=== PATIENT | female | born 1950 | race Caucasian/White ===

== ENCOUNTER 2016-10-24 09:13 | Outpatient (RCR) | payer MEDICARE ==
--- NOTE | 2016-11-16 08:59 | RADONC ---
RADIATION ONCOLOGY PROGRESS NOTE: DATE: 11/13/2016 Ms. Child is presently a dose of 1260 cGy to her right breast and is tolerating treatments quite well at this point with no complaints related to her radiation therapy. She has no breast or bone pain. REVIEW OF SYSTEMS: The patient's review of systems is noncontributory. Denies nausea, vomiting, fevers, chills, night sweats, diplopia, headaches, anxiety or depression, anorexia, weight loss, visual disturbances, chest pain, urinary or bowel difficulties, bone pain, or neurological problems. PHYSICAL EXAMINATION: The patient's skin is in good condition with no evidence of moist or dry desquamation. The remainder of her physical exam remains unchanged. Ms. Child is tolerating treatments quite well and radiation will continue as scheduled.
== END 2016-11-14 ==
LOC: M ONCR 09:13
PROVIDERS: ATTEND Radiology Radiation Oncology
DX: C50.811 Malignant neoplasm of overlapping sites of right female breast (principal)

== ENCOUNTER → 2016-10-25 | Outpatient (CLI) | payer MEDICARE ==
[2016-10-25 16:03] LABS: MEAN CORPUSCULAR HEMOGLOBIN 29.7 pg (27.0-33.0); MEAN CORPUSCULAR HGB CONC 32.8 g/dl (32.0-36.5); MEAN CORPUSCULAR VOLUME 90.6 fl (80.0-96.0); RED CELL DISTRIBUTION WIDTH 13.2 % (11.5-14.5); WHITE BLOOD COUNT 10.2 K/mm3 (4.0-10.0)
== END ==
LOC: M RAD 13:45
PROVIDERS: ATTEND Radiology Radiation Oncology
DX: C50.919 Malignant neoplasm of unspecified site of unspecified female breast (principal)

== ENCOUNTER 2016-11-15 10:33 | Outpatient (RCR) | payer MEDICARE ==
--- NOTE | 2016-11-21 09:33 | RADONC ---
RADIATION ONCOLOGY PROGRESS NOTE DATE: 11/20/2016 CHART NUMBER: [id number] Ms. Child is presently at a dose of 1800 cGy to her right breast and is tolerating treatments quite well at this point with no complaints related to her radiation therapy. She is having no significant breast or bone pain. The patient's review of systems is noncontributory. She denies nausea, vomiting, fevers, chills, night sweats, diplopia, headaches, anxiety or depression, anorexia, weight loss, visual disturbances, chest pain, urinary or bowel difficulties, bone pain, or neurological problems. PHYSICAL EXAMINATION: The patient's skin is in good condition with no evidence of moist or dry desquamation. The remainder of her physical exam remains unchanged. Ms. Child is tolerating her treatments quite well, and radiation will continue as scheduled.
--- NOTE | 2016-11-28 10:46 | RADONC ---
RADIATION ONCOLOGY PROGRESS NOTE DATE: 11/27/2016 CHART NUMBER: [id number] Ms. Child is presently at a dose of 2700 cGy to her right breast and is tolerating treatments quite well at this point with no significant difficulties related to her radiation therapy other than some skin discomfort. The patient's review of systems is noncontributory. She denies nausea, vomiting, fevers, chills, night sweats, diplopia, headaches, anxiety or depression, anorexia, weight loss, visual disturbances, chest pain, urinary or bowel difficulties, bone pain, or neurological problems. PHYSICAL EXAMINATION: The patient's skin shows some erythema present but overall is in good condition with no evidence of moist or dry desquamation. The remainder of physical exam remains unchanged. Ms. Child is tolerating treatments quite well and radiation will continue as scheduled.
[2016-12-04] MEDS ORDERED: SILV-4 TOP (10:56)
--- NOTE | 2016-12-06 09:47 | RADONC ---
RADIATION ONCOLOGY PROGRESS NOTE DATE: 12/04/2016 CHART NUMBER: [id number] Ms. Child is presently at a dose of 3600 cGy to her right breast and is tolerating treatments quite well at this point with no significant difficulties related to her radiation therapy, other than some tenderness of the skin. REVIEW OF SYSTEMS: The patient's review of systems is positive for skin tenderness, but is otherwise noncontributory. She denies nausea, vomiting, fevers, chills, night sweats, diplopia, headaches, anxiety or depression, anorexia, weight loss, visual disturbances, chest pain, urinary or bowel difficulties, bone pain, or neurological problems. PHYSICAL EXAMINATION: The patient's skin is in good condition with no evidence of moist or dry desquamation. There is erythema present. The remainder of her physical exam remains unchanged. ASSESSMENT: The patient is tolerating treatments fairly well. I have given her a prescription for Silvadene to be used topically for her erythematous skin. Radiation will continue as scheduled.
--- NOTE | 2016-12-11 11:42 | RADONC ---
RADIATION ONCOLOGY SIMULATION NOTE DATE: 12/11/2016 CHART NUMBER: [id number] Ms. Child was taken to the linear accelerator today for clinical setup of her right breast electron beam boost field. Setup was accomplished without difficulty or discomfort. Radiation treatment planning is underway and radiation treatments will begin subsequently. An immobilization device will be used throughout the course of treatment and was setup without difficulty or discomfort. I was physically present throughout the course of electron setup simulation. Edited: 12/11/2016 1145 [facility]
--- NOTE | 2016-12-11 11:46 | RADONC ---
RADIATION ONCOLOGY PROGRESS NOTE DATE: 12/11/2016 CHART NUMBER: [id number] PROGRESS NOTE: Ms. Child is presently at a dose of 4500 cGy to her right breast and is tolerating treatments quite well at this point with no significant difficulties related to radiation therapy other than some tenderness of the skin. REVIEW OF SYSTEMS: The patient's review of systems is noncontributory except for send a dose of the skin. The patient's review of systems is noncontributory. Denies nausea, vomiting, fevers, chills, night sweats, diplopia, headaches, anxiety or depression, anorexia, weight loss, visual disturbances, chest pain, urinary or bowel difficulties, bone pain, or neurological problems. PHYSICAL EXAMINATION: The patient's skin shows some erythema and tanning present but overall is in good condition with no evidence of moist or dry desquamation. The remainder of her physical exam remains unchanged. Ms. Child is tolerating treatments quite well and radiation will continue as scheduled.
== END 2016-12-12 ==
LOC: M ONCR 10:33
PROVIDERS: ATTEND Radiology Radiation Oncology
DX: C50.811 Malignant neoplasm of overlapping sites of right female breast (principal)

== ENCOUNTER → 2016-12-04 | Outpatient (CLI) | payer MEDICARE ==
[~2016-12-04] MED LIST: SILV-4 TOP
--- NOTE | 2016-12-05 09:30 | DEXA ---
AP SPINE L1 - L4 0.932 -2.1 -0.9 LT FEMUR TOTAL 0.740 -2.1 -1.1 RT FEMUR TOTAL 0.721 -2.3 -1.3 TOTAL BODY TOTAL OTHER DUAL FEMUR FRAX* ASSESSMENT Risk factors: Tobacco use (E-cigs). History of adult fracture. 10 year probability of fracture Major osteoporotic fracture 27.2 % Hip fracture 11.2 % COMMENTS: There is low bone density of the spine. There is osteoporosis of the left hip based on femoral neck T score -2.8 left. There is osteoporosis of the right hip based on femoral neck T score -2.7 right. FOLLOW-UP: Recommendation for the next bone density exam: 1 year. NOREEN
== END ==
LOC: M WHC 11:15
PROVIDERS: ATTEND Internal Medicine Medical Oncology
DX: C50.919 Malignant neoplasm of unspecified site of unspecified female breast (principal); Z79.899 Other long term (current) drug therapy; Z78.0 Asymptomatic menopausal state

== ENCOUNTER 2016-12-13 14:37 | Outpatient (RCR) | payer MEDICARE ==
--- NOTE | 2016-12-18 13:25 | RADONC ---
RADIATION ONCOLOGY PROGRESS NOTE DATE: 12/18/2016 CHART NUMBER: [id number]. PROGRESS NOTE: Ms. Child is presently at a dose of 5260 cGy to her right breast primary site boost and is tolerating treatments quite well at this point with no complaints at this time related to her radiation. She does have some back pain from laying on the hard table. REVIEW OF SYSTEMS: The patient's review of systems is positive for some back and arm discomfort but is otherwise noncontributory. The patient's review of systems is noncontributory. Denies nausea, vomiting, fevers, chills, night sweats, diplopia, headaches, anxiety or depression, anorexia, weight loss, visual disturbances, chest pain, urinary or bowel difficulties, bone pain, or neurological problems. PHYSICAL EXAMINATION: The patient's skin is in good condition with no evidence of moist or dry desquamation. The remainder of her physical exam remains unchanged. Ms. Child is tolerating her treatments quite well and radiation will continue as scheduled.
--- NOTE | 2016-12-22 14:32 | RADONC ---
RADIATION ONCOLOGY TREATMENT SUMMARY DATE: 12/22/2016 CHART NUMBER: [id number]. DIAGNOSIS: Right breast cancer. STAGE: IA, [id number]. ECOG PERFORMANCE STATUS: 0 TREATMENT SUMMARY: Ms. 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 We treated the patient to the right breast for a total dose of 4860 cGy delivered in 27 fractions of 180 cGy each over 41 elapsed days from 11/02/2016 through 12/13/2016. The patient's right breast was treated on the linear accelerator utilizing an 18X and 6X photon beam combination with 3D conformal therapy and medial and lateral tangential mahajan. Following completion of 4860 cGy to the entire right breast, the primary site was boosted for an additional 1200 cGy delivered in 6 fractions of 200 cGy each from 12/14/2016 through 12/22/2016. The primary site boost was treated on a linear accelerator utilizing a 9 MeV electron beam prescribed to the 90% isodose line via en face technique. This brought the primary site to a total dose of 6060 cGy delivered in 33 fractions over 50 elapsed days from 11/02/2016 through 12/22/2016. Ms. Child is tolerated her treatments quite well with no difficulties related to her radiation therapy. She was able to complete therapy as prescribed without interruption. I have scheduled the patient to see me again in 1 month for further followup. She will also continue to be followed by her other physicians as well. cc: Jeny Schmidt MD *Nicho Ruiz MD
== END 2017-01-12 ==
LOC: M ONCR 14:37
PROVIDERS: ATTEND Radiology Radiation Oncology
DX: C50.811 Malignant neoplasm of overlapping sites of right female breast (principal)

== ENCOUNTER → 2017-01-24 | Outpatient (CLI) | payer MEDICARE ==
--- NOTE | 2017-01-24 12:14 | RADONC ---
RADIATION ONCOLOGY FOLLOWUP NOTE DATE: 01/24/2017 CHART NUMBER: [id number] DIAGNOSIS: Right breast cancer. STAGE: IA, [id number]. ECOG PERFORMANCE STATUS: 0 FOLLOWUP NOTE: Ms. Child is a very pleasant 66-year-old white female with the diagnosis of a stage IA, T1N0M0, well-differentiated infiltrating ductal carcinoma of the right breast who is presenting to us today for routine followup visit 1 month post completion of external beam radiation therapy. The patient presents today reporting that she is doing quite well with no complaints at this time related to her radiation therapy or disease. She has no breast or bone pain. The patient's review of systems is noncontributory. She denies nausea, vomiting, fevers, chills, night sweats, diplopia, headaches, anxiety or depression, anorexia, weight loss, visual disturbances, chest pain, urinary or bowel difficulties, bone pain, or neurological problems. PHYSICAL EXAMINATION: The patient is a well-developed, well-nourished female in no acute distress. HEENT exam is normocephalic, atraumatic. Extraocular movements are intact. There is no palpable cervical, supraclavicular, infraclavicular, axillary, or inguinal lymphadenopathy present. Lungs are clear to auscultation and percussion. Heart has a regular rate and rhythm. Abdomen is benign with no hepatosplenomegaly, masses, or tenderness. Breast examination reveals no masses or discharge bilaterally. Skeletal examination reveals no tenderness to pressure or percussion of the bony skeleton. Extremities reveal no clubbing, cyanosis, or edema. Neurologic exam is grossly intact, as is the remainder of the physical examination. ASSESSMENT: The patient is clinically PATRICIA at this time and will be seen by us again in 6 months for further followup. She will also continue to be followed by her other physicians as well. cc: Maria Isabel Aguero MD *Nicho Ruiz MD
== END ==
LOC: M ONCR 11:13
PROVIDERS: ATTEND Radiology Radiation Oncology
DX: Z08 Encounter for follow-up examination after completed treatment for malignant neoplasm (principal); Z85.3 Personal history of malignant neoplasm of breast

== ENCOUNTER → 2017-07-06 | Outpatient (REF) | payer MEDICARE | LOC: M SFHCWAGY 16:55 | PROVIDERS: ATTEND Nurse Practitioner Family | DX: R30.0 Dysuria (principal); N94.9 Unspecified condition associated with female genital organs and menstrual cycle | CPT/HCPCS: 81001; 81002; 87070; 87086; 87210; G0463 ==

== ENCOUNTER → 2017-07-10 | Outpatient (CLI) | payer MEDICARE ==
--- NOTE | 2017-07-10 16:56 | REP ---
REASON FOR EXAM: History of pelvic pain. COMPARISON: 08/05/2004 which is the only prior. Transvesical and transvaginal imaging was obtained. The prior examination showed a 1.2 cm sized fibroid in the uterine body to the right of the midline. The uterus measures 5.5 x 2.3 x 3.4 cm. The uterine parenchymal echo pattern is heterogenous. Once again, there is a hypoechoic structure seen in the uterine body to the right of the midline measuring approximately 1 cm and essentially unchanged from the prior exam. The endometrial echo complex is smooth and unremarkable appearing measuring 3 mm in thickness. The right ovary was not visualized transvesically or transvaginally. Left ovary measures 2.3 x 1.5 x 1.5 cm. Within the substance of the left ovary there is a 1.8 cm sized anechoic structure which exhibits posterior wall enhancement and increased through transmission showing no evidence of septations or papillary projections. Urinary bladder measures 13 x 8 x 10 cm. IMPRESSION:1. Urine myomatous changes, as described above, essentially unchanged from the prior exam. 2. Simple left ovarian cyst. Consider 2 month followup to ensure resolution if clinically relevant.
== END ==
LOC: M WHC 12:43
PROVIDERS: ATTEND Nurse Practitioner Family
DX: R10.2 Pelvic and perineal pain (principal)

== ENCOUNTER → 2017-07-25 | Outpatient (CLI) | payer MEDICARE ==
--- NOTE | 2017-07-26 08:57 | RADONC ---
RADIATION ONCOLOGY FOLLOWUP NOTE DATE: 07/25/2017 CHART NUMBER: [id number] DIAGNOSIS: Right breast cancer. STAGE: [id number]. ECOG PERFORMANCE STATUS: 0 FOLLOWUP NOTE: Ms. Ta is a very pleasant 67-year-old white female with the diagnosis of a stage IA, T1N0M0 well-differentiated infiltrating ductal carcinoma of the right breast who is presenting to us today for routine followup visit 7 months post completion of external beam radiation therapy. The patient presents today reporting that she is doing quite well with no complaints at this time related to her radiation therapy or disease. She has no significant breast or bone pain. The patient's review of systems is noncontributory. She denies nausea, vomiting, fevers, chills, night sweats, diplopia, headaches, anxiety or depression, anorexia, weight loss, visual disturbances, chest pain, urinary or bowel difficulties, bone pain, or neurological problems. PHYSICAL EXAMINATION: The patient is a well-developed, well-nourished female in no acute distress. HEENT exam is normocephalic, atraumatic. Extraocular movements are intact. There is no palpable cervical, supraclavicular, infraclavicular, axillary, or inguinal lymphadenopathy present. Lungs are clear to auscultation and percussion. Heart has a regular rate and rhythm. Abdomen is benign with no hepatosplenomegaly, masses, or tenderness. Breast examination reveals no masses or discharge bilaterally. Skeletal examination reveals no tenderness to pressure or percussion of the bony skeleton. Extremities reveal no clubbing, cyanosis, or edema. Neurologic exam is grossly intact, as is the remainder of the physical examination. ASSESSMENT: The patient is clinically PATRICIA at this time and will be seen by us again in 6 months for further followup. She will also continue to be followed by her other physicians as well. cc: Maria Isabel Aguero MD, FACP Nicho Ruiz MD
== END ==
LOC: M ONCR 10:22
PROVIDERS: ATTEND Radiology Radiation Oncology
DX: C50.811 Malignant neoplasm of overlapping sites of right female breast (principal)

== ENCOUNTER → 2017-08-29 | Outpatient (CLI) | payer MEDICARE ==
--- NOTE | 2017-08-29 17:02 | REP ---
Clinical: Cough . Comparison: 08/08/2014 . Technique: PA and lateral. Findings: The mediastinum and cardiac silhouette are normal. The lung mahajan demonstrate chronic changes without acute consolidation, effusion, or pneumothorax. The skeletal structures are intact and normal. Impression: 1. No acute cardiopulmonary process. Signed by Giuseppe Zepeda MD 08/29/2017 04:54 P
== END ==
LOC: M ADAMS 16:29
PROVIDERS: ATTEND Physician Assistant
DX: R05 Cough (principal); R50.9 Fever, unspecified

== ENCOUNTER → 2019-07-17 | Outpatient (CLI) | payer MEDICARE ==
--- NOTE | 2019-07-17 15:11 | REP ---
BILATERAL SCREENING DIGITAL MAMMOGRAM WITH 3D TOMOSYNTHESIS: There are no palpable abnormalities or other breast complaints. The the patient states she has not had a clinical breast examination in over a year. The the patient states she performs self-breast examinations six times per year. The Tyrer-Cuzick Score is: NA, Right breast carcinoma in August 03, 2016. Comparison is 06/01/2016. The needle localization and excisional biopsy of the right breast nodule identified on the 06/01/2016. Comparison study. This is the first mammogram performed post biopsy. There are no other comparison post biopsy mammograms. The the the There are scattered areas of fibroglandular density. There is a surgical " previously identified right breast nodule. In the absence of other postbiopsy comparison studies I cannot determine whether there are has been interval enlargement of this scar. There are no additional findings on 3D tomosynthesiss. Impression: BIRADS/ACR category 0 mammogram. Incomplete, additional imaging evaluation is needed. Recommendation: In the absence of other post biopsy mammograms to determine whether there has been a size increase of the right breast surgical scar, I would recommend breast MRI as a precaution to determine if there has been tumor recurrence. This mammogram was interpreted with the aid of a FDA approved computer-aided detection system. A. Negative mammogram reports should not delay biopsy if a dominant or clinically suspicious mass is present. B. Not all breast cancers are identified by mammography or tomosynthesis. C. Adenosis and dense breasts may obscure an underlying neoplasm. Patient letter M0. Electronically Signed by Kana Brink MD 07/17/2019 03:01 P
== END ==
LOC: M WHC 10:27
PROVIDERS: ATTEND Internal Medicine
DX: Z12.31 Encounter for screening mammogram for malignant neoplasm of breast (principal); R92.2 Inconclusive mammogram

== ENCOUNTER 2020-12-20 14:45 | Emergency (ER) | payer MEDICARE ==
[~2020-12-20] VITALS: Ht 160 cm; Wt 92.6 kg
[2020-12-20 16:26] VITALS: BP 188/80
== END 2020-12-20 16:51 | disposition home or self-care (01) ==
LOC: M ED 14:45
DX: Z60.9 Problem related to social environment, unspecified (principal); Z88.8 Allergy status to other drugs, medicaments and biological substances

== ENCOUNTER → 2020-12-21 | Outpatient (CLI) | payer MEDICARE ==
--- NOTE | 2020-12-21 12:31 | REPMRS ---
Patient History The patient states she has not had a clinical breast exam in over a year. Patient is postmenopausal, has history of breast cancer at age 66, and had previous chest radiation therapy at age 66. Family history of breast cancer at age 49 in sister, unknown cancer at age 33 in sister. Radiation therapy of the right breast, 2017. Malignant radio exam breast specimen, July 21, 2016. Malignant localization of breast nodule of the right breast, July 21, 2016. Digital Woman Screen Mammo: December 21, 2020 - Exam #: [id number] Bilateral CC and MLO view(s) were taken. Technologist: Ashlyn Tena, Technologist Prior study comparison: July 17, 2019, bilateral digital woman screen mammo performed at [facility]. June 20, 2018, bilateral digital mammo screening bilat, performed at [facility]. June 11, 2017, bilateral digital mammo screening bilat, performed at [facility]. FINDINGS: The breast tissue is almost entirely fat. The Volpara volumetric breast density category is: A. There are stable post treatment changes in the right breast. There has been no change in the appearance of the mammogram from the prior studies. There is no interval development of dominant mass, architectural distortion, or grouped microcalcification typical of malignancy. 3-D tomosynthesis shows no additional findings. Assessment: BI-RADS/ACR category 2 mammogram. Benign Findings. Recommendation Routine screening mammogram of both breasts in 1 year (for women over age 40). This mammogram was interpreted with the aid of an FDA-approved computer-aided dectection system. Electronically Signed By: Jose L Wyman MD 12/21/20 [id number]
== END ==
LOC: M WHC 11:14
PROVIDERS: ATTEND Internal Medicine
DX: Z12.31 Encounter for screening mammogram for malignant neoplasm of breast (principal); Z85.3 Personal history of malignant neoplasm of breast; Z92.3 Personal history of irradiation; Z80.3 Family history of malignant neoplasm of breast

== ENCOUNTER → 2022-01-25 | Outpatient (CLI) | payer MEDICARE | LOC: M WHC 09:42 | PROVIDERS: ATTEND Internal Medicine | DX: Z12.31 Encounter for screening mammogram for malignant neoplasm of breast (principal) ==

== ENCOUNTER → 2022-03-08 | Outpatient (CLI) | payer MEDICARE | LOC: M WHC 07:54 | PROVIDERS: ATTEND Internal Medicine Gastroenterology | DX: K59.04 Chronic idiopathic constipation (principal); R12 Heartburn; R16.0 Hepatomegaly, not elsewhere classified; K76.0 Fatty (change of) liver, not elsewhere classified ==

== ENCOUNTER → 2022-03-20 | Outpatient (CLI) | payer MEDICARE ==
[2022-03-20 12:04] LABS: ALBUMIN 3.8 GM/DL (3.2-5.2); BLOOD UREA NITROGEN 11 MG/DL (7-18); C REACTIVE PROTEIN QUANTITATIV 0.43 MG/DL (0.00-0.30); CALCIUM LEVEL 9.9 MG/DL (8.8-10.2); CARBON DIOXIDE LEVEL 28 MEQ/L (21-32); CHLORIDE LEVEL 106 MEQ/L (98-107); CREATININE FOR GFR 0.58 MG/DL (0.55-1.30); GLOMERULAR FILTRATION RATE > 60.0 (>39); GLUCOSE, FASTING 94 MG/DL (70-100); POTASSIUM SERUM 4.2 MEQ/L (3.5-5.1); SODIUM LEVEL 140 MEQ/L (136-145)
[2022-03-20 12:17] LABS: MAU/CREAT RATIO 41.9 MCG/MG (0.0-30.0)
== END ==
LOC: M LAB 10:28
PROVIDERS: ATTEND Internal Medicine Cardiovascular Disease
DX: I10 Essential (primary) hypertension (principal)

== ENCOUNTER → 2022-03-21 | Outpatient (REF) | payer MEDICARE | LOC: M LAB REF 09:33 | PROVIDERS: ATTEND Internal Medicine Cardiovascular Disease | DX: I10 Essential (primary) hypertension (principal) ==

== ENCOUNTER → 2022-04-06 | Outpatient (CLI) | payer MEDICARE | LOC: M RAD 08:28 | PROVIDERS: ATTEND Internal Medicine Cardiovascular Disease | DX: I10 Essential (primary) hypertension (principal) ==

== ENCOUNTER → 2022-05-03 | Outpatient (CLI) | payer MEDICARE ==
[~2022-05-03] MED LIST changes: +ISOVUE-370 76% 100ML VIAL As Ordered ONE
== END ==
LOC: M RAD 10:58
PROVIDERS: ATTEND Internal Medicine Cardiovascular Disease
DX: I10 Essential (primary) hypertension (principal)
CPT/HCPCS: 74174; Q9967

== ENCOUNTER → 2022-06-25 | Outpatient (CLI) | payer MEDICARE ==
[~2022-06-25] MED LIST changes: +ADV250INH; +ALBU8.5H; +ASPI81CH33 PO; -ISOVUE-370 76% 100ML VIAL As Ordered ONE; +ISRA5CAP; +VALS1TAB68
== END ==
LOC: M LABSMTC 09:21
PROVIDERS: ATTEND Anesthesiology
DX: Z01.818 Encounter for other preprocedural examination (principal); Z11.52 Encounter for screening for COVID-19

== ENCOUNTER 2022-06-28 08:46 | Day surgery (SDC) | payer MEDICARE ==
[~2022-06-28] VITALS: Ht 157.5 cm; Wt 91.8 kg
[~2022-06-28 08:46] MED LIST changes: +NS 1,000 ML IV ONE
[2022-06-28 11:55] VITALS: BP 182/78
[2022-06-28] MEDS ORDERED: LIDOCAINE 2% 100MG/5ML SDV (FOR ANES.) As Ordered ONE (12:54)
[2022-06-28] MEDS ORDERED: propofoL 500 MG/50 ML VIAL As Ordered ONE (12:54)
[2022-06-28] MEDS ORDERED: fentaNYL 100 MCG/2 ML INJECTION As Ordered ONE (12:54)
== END 2022-06-28 12:03 | disposition home or self-care (01) ==
LOC: M OPP 08:46
PROVIDERS: ATTEND Internal Medicine Gastroenterology
DX: D12.2 Benign neoplasm of ascending colon (principal); K64.0 First degree hemorrhoids; K57.30 Diverticulosis of large intestine without perforation or abscess without bleeding; K31.89 Other diseases of stomach and duodenum; Z79.1 Long term (current) use of non-steroidal anti-inflammatories (NSAID); Z79.82 Long term (current) use of aspirin; Z79.899 Other long term (current) drug therapy; Z88.1 Allergy status to other antibiotic agents; Z88.7 Allergy status to serum and vaccine; Z88.8 Allergy status to other drugs, medicaments and biological substances; K74.60 Unspecified cirrhosis of liver; I10 Essential (primary) hypertension; G43.909 Migraine, unspecified, not intractable, without status migrainosus; J45.909 Unspecified asthma, uncomplicated; Z85.3 Personal history of malignant neoplasm of breast; Z86.73 Personal history of transient ischemic attack (TIA), and cerebral infarction without residual deficits; Z87.09 Personal history of other diseases of the respiratory system; M17.0 Bilateral primary osteoarthritis of knee; F32.9 Major depressive disorder, single episode, unspecified; F41.9 Anxiety disorder, unspecified
CPT/HCPCS: 43239; 45380; 88305; J3010

== ENCOUNTER → 2023-01-30 | Outpatient (CLI) | payer MEDICARE ==
[~2023-01-30] MED LIST changes: -NS 1,000 ML IV ONE
== END ==
LOC: M WHC 13:44
PROVIDERS: ATTEND Internal Medicine
DX: Z12.31 Encounter for screening mammogram for malignant neoplasm of breast (principal)

== ENCOUNTER → 2024-02-19 | Outpatient (CLI) | payer MEDICARE | LOC: M WUC 10:42 | PROVIDERS: ATTEND Internal Medicine | DX: J45.909 Unspecified asthma, uncomplicated (principal) ==

== ENCOUNTER 2024-03-27 09:17 | Emergency (ER) | payer MEDICARE ==
[~2024-03-27] VITALS: Ht 160 cm; Wt 95.6 kg
[2024-03-27] MEDS ORDERED: MONT10TA97 (09:30)
[2024-03-27 10:35] LABS: VENOUS HCO3 24.4 MMOL/L (23.0-27.0); VENOUS O2 SATURATION 77.2 % (60.0-80.0); VENOUS PARTIAL PRESSURE CO2 42.9 mmHg (38.0-50.0); VENOUS PARTIAL PRESSURE O2 42.1 mmHg (30.0-50.0); VENOUS PH 7.372 UNITS (7.330-7.430); VENOUS STANDARD HCO3 23.1 MMOL/L; VENOUS TOTAL CO2 25.7 MMOL/L (24.0-28.0)
[2024-03-27 10:38] LABS: BASO # 0.1 10^3/uL (0.0-0.2); BASO % 1.2 % (0.0-1.0); EOS # 0.3 10^3/uL (0.0-0.5); EOS % 2.8 % (0.0-3.0); HEMATOCRIT 44.2 % (36.0-47.0); HEMOGLOBIN 14.3 g/dl (12.0-15.5); LYMPH # 2.5 10^3/uL (1.5-5.0); MEAN CORPUSCULAR HEMOGLOBIN 29.8 pg (27.0-33.0); MEAN CORPUSCULAR HGB CONC 32.4 g/dl (32.0-36.5); MEAN CORPUSCULAR VOLUME 92.1 fl (80.0-96.0); MONO # 0.9 10^3/uL (0.0-0.8); MONO % 9.8 % (2.0-8.0); NEUTROPHILS # 5.1 10^3/uL (1.5-8.5); NEUTROPHILS % 57.5 % (36.0-66.0); PLATELET COUNT, AUTOMATED 354 10^3/uL (150-450); WHITE BLOOD COUNT 8.9 10^3/uL (4.0-10.0)
[2024-03-27 11:55] LABS: CK-MB VALUE MASS < 1.0 NG/ML (<3.6)
[2024-03-27 11:58] LABS: ALBUMIN 3.7 G/DL (3.2-5.2); ALKALINE PHOSPHATASE 105 U/L (46-116); ALT/SGPT 20 U/L (7.0-40); AST/SGOT 15 U/L (<34); BILIRUBIN,DIRECT 0.1 MG/DL (<0.4); BILIRUBIN,TOTAL 0.5 MG/DL (0.3-1.2); BLOOD UREA NITROGEN 11 MG/DL (9-23); CALCIUM LEVEL 9.3 MG/DL (8.3-10.6); CARBON DIOXIDE LEVEL 28 MMOL/L (20-31); CHLORIDE LEVEL 105 MMOL/L (98-107); CREATININE FOR GFR 0.53 MG/DL (0.55-1.30); GLOMERULAR FILTRATION RATE > 60.0 (>39); GLUCOSE, FASTING 107 MG/DL (74-106); POTASSIUM SERUM 4.1 MMOL/L (3.5-5.1); SODIUM LEVEL 140 MMOL/L (136-145); TOTAL PROTEIN 7.5 G/DL (5.7-8.2)
[2024-03-27 11:59] LABS: THYROXINE (T4) 7.8 UG/DL (4.5-10.9)
[2024-03-27 12:00] LABS: CPK CREATINE PHOSPHOKINASE 45 U/L (34-145); MB/CK RELATIVE INDEX 2.22 (< OR =4); THYROID STIMULATING HORMONE 2.051 uIU/ML (0.55-4.78)
[2024-03-27] MEDS: LABETALOL 100MG/20ML VIAL IV STA (12:34)
[2024-03-27] MEDS ORDERED: ISOVUE-370 76% 100ML VIAL As Ordered ONE (12:54)
[2024-03-27 14:07] VITALS: BP 227/87; TEMP 96.7; O2SAT 89
== END 2024-03-27 14:08 | disposition home or self-care (01) ==
LOC: M ED 09:17
DX: I10 Essential (primary) hypertension (principal); R06.00 Dyspnea, unspecified; J45.909 Unspecified asthma, uncomplicated; Z87.891 Personal history of nicotine dependence; Z86.79 Personal history of other diseases of the circulatory system; Z85.3 Personal history of malignant neoplasm of breast; Z88.7 Allergy status to serum and vaccine; Z88.8 Allergy status to other drugs, medicaments and biological substances; Z79.82 Long term (current) use of aspirin; Z79.52 Long term (current) use of systemic steroids; Z79.899 Other long term (current) drug therapy
CPT/HCPCS: 36415; 71045; 71275; 80048; 80076; 82550; 82553; 82803; 83605; 83880; 84436; 84443; 84484; 85025; 87040; 93005; 93041; 94760; 99284; Q9967

== ENCOUNTER 2024-07-05 11:03 | Observation (INO) | payer MEDICARE ==
[~2024-07-05] VITALS: Ht 157.5 cm; Wt 96.6 kg
[~2024-07-05 11:03] MED LIST changes: -ADV250INH; +ADV250INH INH; -ISRA5CAP; +ISRA5CAP PO; +MONT10TA97; -VALS1TAB68; +VALS1TAB68 PO
[2024-07-05] MEDS: ACETAMINOPHEN 500 MG TAB PO ONE (13:21)
[2024-07-05 18:41] LABS: BASO # 0.1 10^3/uL (0.0-0.2); BASO % 0.4 % (0.0-1.0); EOS # 0.1 10^3/uL (0.0-0.5); EOS % 0.3 % (0.0-3.0); HEMATOCRIT 40.2 % (36.0-47.0); HEMOGLOBIN 13.1 g/dl (12.0-15.5); LYMPH # 2.6 10^3/uL (1.5-5.0); LYMPH % 13.6 % (24.0-44.0); MEAN CORPUSCULAR HEMOGLOBIN 29.9 pg (27.0-33.0); MEAN CORPUSCULAR HGB CONC 32.6 g/dl (32.0-36.5); MEAN CORPUSCULAR VOLUME 91.8 fl (80.0-96.0); MONO # 1.7 10^3/uL (0.0-0.8); MONO % 8.8 % (2.0-8.0); NEUTROPHILS # 14.7 10^3/uL (1.5-8.5); NEUTROPHILS % 76.4 % (36.0-66.0); PLATELET COUNT, AUTOMATED 337 10^3/uL (150-450); RED BLOOD COUNT 4.38 10^6/uL (4.00-5.40); WHITE BLOOD COUNT 19.2 10^3/uL (4.0-10.0)
[2024-07-05 19:05] LABS: BLOOD UREA NITROGEN 10 MG/DL (9-23); CALCIUM LEVEL 9.6 MG/DL (8.3-10.6); CARBON DIOXIDE LEVEL 26 MMOL/L (20-31); CHLORIDE LEVEL 106 MMOL/L (98-107); GLOMERULAR FILTRATION RATE > 60.0 (>39); GLUCOSE, FASTING 119 MG/DL (74-106); POTASSIUM SERUM 3.9 MMOL/L (3.5-5.1); SODIUM LEVEL 137 MMOL/L (136-145)
[2024-07-05] MEDS ORDERED: oxyCODONE 5MG TAB PO PRN (19:45)
[2024-07-05] MEDS: ADVAIR HFA 115/21MCG INHALER INH SCH (20:00)
[2024-07-05] MEDS ORDERED: MAGN64TASA PO ×2 (20:07)
[2024-07-05] MEDS ORDERED: VENTAER INH (20:07)
[2024-07-05] MEDS ORDERED: THERTAB52 PO (20:10)
[2024-07-05] MEDS ORDERED: ALLE180T33 PO (20:10)
[2024-07-05] MEDS ORDERED: KP F1200 PO (20:12)
[2024-07-05] MEDS ORDERED: VITAD1000T PO (20:12)
[2024-07-05] MEDS ORDERED: HOME MED LIST COMPLETE! XX SCH (20:15)
[2024-07-05] MEDS: ENOXAPARIN 40MG/0.4ML SYRINGE (J1650 PER 10MG) SC SCH (21:21)
[2024-07-05] MEDS: ACETAMINOPHEN 500 MG TAB PO PRN (21:21)
[2024-07-05 23:00] VITALS: BP 278/98
[2024-07-05] MEDS: cloNIDine 0.1MG TABLET PO ONE (23:08)
[2024-07-05] MEDS: ALPRAZolam 0.25 MG TAB PO PRN (23:13)
[2024-07-05 23:20] VITALS: BP 208/80
[2024-07-06] VITALS (8 sets, daily range): BP systolic 135–202; BP diastolic 54–82; TEMP 97.9–98.5; O2SAT 92–96
[2024-07-06] MEDS ORDERED: cloNIDine 0.1MG TABLET PO PRN
[2024-07-06] MEDS: traMADol 50 MG TAB PO PRN (00:28)
[2024-07-06] MEDS: ALBUTEROL 90 MCG/ACT 8GM HFA INHALER INH PRN (00:35)
[2024-07-06] MEDS: MAGNESIUM GLUCONATE 500 MG TAB PO SCH ×2 (01:45→08:29)
[2024-07-06] MEDS: CYCLOBENZAPRINE 5MG TABLET PO SCH (03:43)
[2024-07-06] MEDS: GABAPENTIN 300 MG CAP PO SCH (03:44)
[2024-07-06 06:47] LABS: HEMATOCRIT 36.5 % (36.0-47.0); HEMOGLOBIN 11.7 g/dl (12.0-15.5); MEAN CORPUSCULAR HEMOGLOBIN 29.5 pg (27.0-33.0); MEAN CORPUSCULAR HGB CONC 32.1 g/dl (32.0-36.5); MEAN CORPUSCULAR VOLUME 92.2 fl (80.0-96.0); PLATELET COUNT, AUTOMATED 291 10^3/uL (150-450); RED BLOOD COUNT 3.96 10^6/uL (4.00-5.40); WHITE BLOOD COUNT 13.8 10^3/uL (4.0-10.0)
[2024-07-06 07:14] LABS: ALBUMIN 3.2 G/DL (3.2-5.2); ALKALINE PHOSPHATASE 88 U/L (46-116); ALT/SGPT 17 U/L (7.0-40); AST/SGOT 13 U/L (<34); BILIRUBIN,TOTAL 0.8 MG/DL (0.3-1.2); BLOOD UREA NITROGEN 11 MG/DL (9-23); CALCIUM LEVEL 8.6 MG/DL (8.3-10.6); CARBON DIOXIDE LEVEL 25 MMOL/L (20-31); CHLORIDE LEVEL 103 MMOL/L (98-107); GLOMERULAR FILTRATION RATE > 60.0 (>39); GLUCOSE, FASTING 137 MG/DL (74-106); POTASSIUM SERUM 4.1 MMOL/L (3.5-5.1); SODIUM LEVEL 134 MMOL/L (136-145); TOTAL PROTEIN 6.5 G/DL (5.7-8.2)
[2024-07-06] MEDS ORDERED: PERCOCET 5MG/325MG TAB PO PRN (08:05)
[2024-07-06] MEDS: FEXOFENADINE 60MG TAB PO SCH (08:28)
[2024-07-06] MEDS: VITAMIN D 1,000 INTERNATIONAL UNITS TABLET PO SCH (08:29)
[2024-07-06] MEDS: VALSARTAN 80 MG TAB (DIOVAN) PO SCH (08:29)
[2024-07-06] MEDS: ISRADIPINE 5 MG PO SCH (09:00)
[2024-07-06] MEDS: CYCLOBENZAPRINE 5MG TABLET PO PRN (16:17)
[2024-07-07] VITALS (8 sets, daily range): BP systolic 143–189; BP diastolic 62–82; TEMP 97.1–98.6; O2SAT 94–99
[2024-07-07 05:56] LABS: BASO # 0.1 10^3/uL (0.0-0.2); BASO % 0.6 % (0.0-1.0); EOS # 0.3 10^3/uL (0.0-0.5); EOS % 2.3 % (0.0-3.0); HEMATOCRIT 34.7 % (36.0-47.0); LYMPH # 2.7 10^3/uL (1.5-5.0); LYMPH % 22.3 % (24.0-44.0); MEAN CORPUSCULAR HEMOGLOBIN 29.6 pg (27.0-33.0); MEAN CORPUSCULAR HGB CONC 31.7 g/dl (32.0-36.5); MEAN CORPUSCULAR VOLUME 93.3 fl (80.0-96.0); MONO # 1.4 10^3/uL (0.0-0.8); MONO % 11.7 % (2.0-8.0); NEUTROPHILS # 7.7 10^3/uL (1.5-8.5); NEUTROPHILS % 62.4 % (36.0-66.0); PLATELET COUNT, AUTOMATED 266 10^3/uL (150-450); RED BLOOD COUNT 3.72 10^6/uL (4.00-5.40); WHITE BLOOD COUNT 12.3 10^3/uL (4.0-10.0)
[2024-07-07 06:25] LABS: BLOOD UREA NITROGEN 14 MG/DL (9-23); CALCIUM LEVEL 8.1 MG/DL (8.3-10.6); CARBON DIOXIDE LEVEL 28 MMOL/L (20-31); CHLORIDE LEVEL 108 MMOL/L (98-107); CREATININE FOR GFR 0.62 MG/DL (0.55-1.30); GLOMERULAR FILTRATION RATE > 60.0 (>39); GLUCOSE, FASTING 128 MG/DL (74-106); MAGNESIUM LEVEL 2.2 MG/DL (1.8-2.4); POTASSIUM SERUM 4.4 MMOL/L (3.5-5.1); SODIUM LEVEL 138 MMOL/L (136-145)
[2024-07-07] MEDS: MULTIVITAMINS/MINERALS THERAP 1 TAB PO SCH (08:29)
[2024-07-07] MEDS: OMEGA-3 1000MG CAPSULE PO SCH (08:29)
[2024-07-07] MEDS: ASPIRIN 81MG CHEW TABLET PO SCH (08:29)
[2024-07-07] MEDS: LIDOCAINE 5% (LIDODERM) PATCH TD SCH (10:08)
[2024-07-07] MEDS: PERCOCET 5MG/325MG TAB PO PRN (13:50)
[2024-07-08 04:00] VITALS: BP 146/45; TEMP 97.2; O2SAT 97
[2024-07-08 05:14] LABS: BASO # 0.1 10^3/uL (0.0-0.2); BASO % 0.8 % (0.0-1.0); EOS # 0.6 10^3/uL (0.0-0.5); EOS % 4.6 % (0.0-3.0); HEMATOCRIT 33.9 % (36.0-47.0); HEMOGLOBIN 10.6 g/dl (12.0-15.5); LYMPH # 2.4 10^3/uL (1.5-5.0); LYMPH % 20.4 % (24.0-44.0); MEAN CORPUSCULAR HEMOGLOBIN 29.4 pg (27.0-33.0); MEAN CORPUSCULAR HGB CONC 31.3 g/dl (32.0-36.5); MEAN CORPUSCULAR VOLUME 93.9 fl (80.0-96.0); MONO # 1.2 10^3/uL (0.0-0.8); MONO % 10.1 % (2.0-8.0); NEUTROPHILS # 7.5 10^3/uL (1.5-8.5); NEUTROPHILS % 63.3 % (36.0-66.0); PLATELET COUNT, AUTOMATED 274 10^3/uL (150-450); RED BLOOD COUNT 3.61 10^6/uL (4.00-5.40); WHITE BLOOD COUNT 11.9 10^3/uL (4.0-10.0)
[2024-07-08 05:38] LABS: BLOOD UREA NITROGEN 16 MG/DL (9-23); CALCIUM LEVEL 8.1 MG/DL (8.3-10.6); CARBON DIOXIDE LEVEL 26 MMOL/L (20-31); CHLORIDE LEVEL 105 MMOL/L (98-107); CREATININE FOR GFR 0.63 MG/DL (0.55-1.30); GLOMERULAR FILTRATION RATE > 60.0 (>39); GLUCOSE, FASTING 122 MG/DL (74-106); MAGNESIUM LEVEL 2.2 MG/DL (1.8-2.4); POTASSIUM SERUM 4.2 MMOL/L (3.5-5.1); SODIUM LEVEL 137 MMOL/L (136-145)
[2024-07-08 08:35] VITALS: BP 150/58
[2024-07-08] MEDS ORDERED: MIRALAX *UNIT DOSE* 17GM PACKET PO PRN (09:35)
[2024-07-08] MEDS ORDERED: SENNA 8.6 MG TAB (SENOKOT) PO PRN (09:35)
[2024-07-08] MEDS: ONDANSETRON 4MG 2ML VIAL IV PRN (11:22)
[2024-07-08 12:00] VITALS: BP 159/54; TEMP 97; O2SAT 95
== END 2024-07-08 15:55 ==
LOC: M ED 11:03 → EDBD 11:03 → M ED INP 19:42 → INTOOBSV 19:42 → M MS5PR 22:45 → M PCU 07-06 00:07 → M MSPAV 07-07 21:26
PROVIDERS: ADMIT Preventive Medicine Undersea and Hyperbaric Medicine; ATTEND Internal Medicine
DX: S82.101A Unspecified fracture of upper end of right tibia, initial encounter for closed fracture (principal); M25.461 Effusion, right knee; W01.0XXA Fall on same level from slipping, tripping and stumbling without subsequent striking against object, initial encounter; Y92.89 Other specified places as the place of occurrence of the external cause; Y99.9 Unspecified external cause status; I10 Essential (primary) hypertension; Z86.73 Personal history of transient ischemic attack (TIA), and cerebral infarction without residual deficits; J45.909 Unspecified asthma, uncomplicated; J30.2 Other seasonal allergic rhinitis; E55.9 Vitamin D deficiency, unspecified; Z79.82 Long term (current) use of aspirin; Z79.899 Other long term (current) drug therapy; Z88.1 Allergy status to other antibiotic agents; Z91.018 Allergy to other foods; Z88.7 Allergy status to serum and vaccine; Z88.8 Allergy status to other drugs, medicaments and biological substances
CPT/HCPCS: 36415; 73564; 73590; 73610; 73700; 80048; 80053; 83735; 85025; 85027; 93005; 94640; 96372; 96374; 99285; G0378; J1650

== ENCOUNTER 2024-07-08 14:39 | Inpatient (IN) | payer MEDICARE ==
[~2024-07-08] VITALS: Ht 157.5 cm; Wt 94.4 kg
[~2024-07-08 14:39] MED LIST changes: +ALLE180T33 PO; +KP F1200 PO; +MAGN64TASA PO; +THERTAB52 PO; +VENTAER INH; +VITAD1000T PO
[2024-07-08] MEDS ORDERED: ACETAMINOPHEN 500 MG TAB PO PRN (15:05)
[2024-07-08] MEDS ORDERED: FLEET ENEMA PR PRN (15:05)
[2024-07-08] MEDS ORDERED: SIMETHICONE 80MG CHEW TAB PO PRN (15:05)
[2024-07-08] MEDS ORDERED: MOM 30ML SUSPENSION UDC PO PRN (15:05)
[2024-07-08] MEDS ORDERED: MAALOX 30 ML SUSP *UDC PO PRN (15:05)
[2024-07-08] MEDS ORDERED: MIRALAX *UNIT DOSE* 17GM PACKET PO PRN (15:05)
[2024-07-08 16:00] VITALS: BP 148/74; TEMP 97.1; O2SAT 96
[2024-07-08] MEDS: MAGNESIUM GLUCONATE 500 MG TAB PO SCH (18:00)
[2024-07-08 19:31] VITALS: BP 152/72; TEMP 98; O2SAT 96
[2024-07-08] MEDS: DOCUSATE SODIUM 100MG CAPSULE PO SCH (19:51)
[2024-07-08] MEDS: SENNA 8.6 MG TAB (SENOKOT) PO SCH (19:51)
[2024-07-08] MEDS: CYCLOBENZAPRINE 5MG TABLET PO PRN (19:52)
[2024-07-08] MEDS: PERCOCET 5MG/325MG TAB PO PRN (19:52)
[2024-07-08] MEDS: ADVAIR HFA 115/21MCG INHALER INH SCH (21:35)
[2024-07-09 04:31] VITALS: BP 142/60; TEMP 97.8; O2SAT 96
[2024-07-09] MEDS: PERCOCET 5MG/325MG TAB PO PRN (06:36)
[2024-07-09] MEDS: VITAMIN D 1,000 INTERNATIONAL UNITS TABLET PO SCH (07:36)
[2024-07-09] MEDS: FEXOFENADINE 60MG TAB PO SCH (07:36)
[2024-07-09] MEDS: MAGNESIUM GLUCONATE 500 MG TAB PO SCH (07:37)
[2024-07-09] MEDS: MULTIVITAMINS/MINERALS THERAP 1 TAB PO SCH (07:37)
[2024-07-09] MEDS: ENOXAPARIN 40MG/0.4ML SYRINGE (J1650 PER 10MG) SC SCH (07:37)
[2024-07-09] MEDS: ASPIRIN 81MG CHEW TABLET PO SCH (07:37)
[2024-07-09] MEDS: VALSARTAN 80 MG TAB (DIOVAN) PO SCH (07:40)
[2024-07-09] MEDS: LIDOCAINE 5% (LIDODERM) PATCH TD SCH (07:46)
[2024-07-09] MEDS ORDERED: MECLIZINE 25 MG TABLET PO STA (09:22)
[2024-07-09] MEDS: ONDANSETRON 4MG 2ML VIAL IV STA (09:42)
[2024-07-09] MEDS: ACETAMINOPHEN 500 MG TAB PO SCH (11:16)
[2024-07-09 11:18] VITALS: BP 120/75
[2024-07-09 11:18] LABS: BASO # 0.1 10^3/uL (0.0-0.2); BASO % 0.7 % (0.0-1.0); EOS # 0.4 10^3/uL (0.0-0.5); EOS % 3.5 % (0.0-3.0); HEMATOCRIT 35.5 % (36.0-47.0); HEMOGLOBIN 11.2 g/dl (12.0-15.5); LYMPH # 2.4 10^3/uL (1.5-5.0); LYMPH % 19.4 % (24.0-44.0); MEAN CORPUSCULAR HGB CONC 31.5 g/dl (32.0-36.5); MEAN CORPUSCULAR VOLUME 95.2 fl (80.0-96.0); MONO # 1.2 10^3/uL (0.0-0.8); MONO % 9.2 % (2.0-8.0); NEUTROPHILS # 8.3 10^3/uL (1.5-8.5); NEUTROPHILS % 66.6 % (36.0-66.0); PLATELET COUNT, AUTOMATED 322 10^3/uL (150-450); RED BLOOD COUNT 3.73 10^6/uL (4.00-5.40); WHITE BLOOD COUNT 12.5 10^3/uL (4.0-10.0)
[2024-07-09] MEDS: ISRADIPINE 5 MG PO SCH (11:18)
[2024-07-09 11:52] LABS: BLOOD UREA NITROGEN 19 MG/DL (9-23); CALCIUM LEVEL 8.7 MG/DL (8.3-10.6); CARBON DIOXIDE LEVEL 28 MMOL/L (20-31); CHLORIDE LEVEL 102 MMOL/L (98-107); CREATININE FOR GFR 0.62 MG/DL (0.55-1.30); GLOMERULAR FILTRATION RATE > 60.0 (>39); GLUCOSE, FASTING 102 MG/DL (74-106); POTASSIUM SERUM 3.9 MMOL/L (3.5-5.1); SODIUM LEVEL 135 MMOL/L (136-145)
[2024-07-09 12:00] VITALS: BP 137/57; TEMP 97.6; O2SAT 94
[2024-07-09] MEDS: ALBUTEROL 90 MCG/ACT 8GM HFA INHALER INH PRN (19:58)
[2024-07-09 20:00] VITALS: BP 138/72; TEMP 97; O2SAT 97
[2024-07-10 04:00] VITALS: BP 156/65; TEMP 97.7; O2SAT 93
[2024-07-10] MEDS: traMADol 50 MG TAB PO PRN (04:29)
[2024-07-10 12:00] VITALS: BP 150/69; TEMP 97.3; O2SAT 94
[2024-07-10] MEDS ORDERED: CALCIUM CARBONATE 500 MG CHEW U/D PO PRN ×2 (16:55)
[2024-07-10 20:00] VITALS: BP 150/61; TEMP 96.7; O2SAT 97
[2024-07-10] MEDS: FAMOTIDINE 20 MG TAB PO SCH (21:31)
[2024-07-11 04:00] VITALS: BP 180/78; TEMP 96.8; O2SAT 95
[2024-07-11 06:00] VITALS: BP 152/76
[2024-07-11 11:44] VITALS: BP 148/52; TEMP 97.4; O2SAT 92
[2024-07-11 20:00] VITALS: BP 170/52; TEMP 98.5; O2SAT 97
[2024-07-11] MEDS: **hydrALAZINE** 10 MG TAB PO PRN (20:25)
[2024-07-11] MEDS: LIDOCAINE 5% (LIDODERM) PATCH TD SCH (21:44)
[2024-07-12 03:30] VITALS: BP 180/70; TEMP 97.8; O2SAT 97
[2024-07-12 05:15] VITALS: BP 170/72
[2024-07-12 12:00] VITALS: BP 148/68; TEMP 97.3; O2SAT 94
[2024-07-12 20:00] VITALS: BP 172/68; TEMP 97.5; O2SAT 94
[2024-07-13 04:00] VITALS: BP 186/78; TEMP 97.1; O2SAT 96
[2024-07-13 05:08] VITALS: BP 165/71
[2024-07-13 12:00] VITALS: BP 152/72; TEMP 98.6; O2SAT 98
[2024-07-13] MEDS: traMADol 50 MG TAB PO PRN (19:50)
[2024-07-13 20:00] VITALS: BP 202/86; TEMP 97.9; O2SAT 96
[2024-07-13 21:00] VITALS: BP 180/78
[2024-07-13 22:00] VITALS: BP 168/72
[2024-07-14 04:00] VITALS: BP 152/72; TEMP 96.6; O2SAT 97
[2024-07-14 12:00] VITALS: BP 154/60; TEMP 98.3; O2SAT 97
[2024-07-14] MEDS: ONDANSETRON 4MG TAB PO PRN (13:17)
[2024-07-14] MEDS: **hydrALAZINE** 10 MG TAB PO SCH (14:49)
[2024-07-14 20:00] VITALS: BP 156/78; TEMP 97.8; O2SAT 95
[2024-07-15 04:00] VITALS: BP 144/66; TEMP 98.1; O2SAT 96
[2024-07-15 12:38] VITALS: BP 144/59; TEMP 97.8; O2SAT 95
[2024-07-15 19:39] VITALS: BP 146/62; TEMP 98; O2SAT 95
[2024-07-15] MEDS: traMADol 50 MG TAB PO PRN (21:03)
[2024-07-16 04:25] VITALS: BP 148/60; TEMP 97.1; O2SAT 95
[2024-07-16 12:00] VITALS: BP 160/70; TEMP 98; O2SAT 96
[2024-07-16] MEDS ORDERED: TRAM50TA2 PO (15:18)
[2024-07-16] MEDS ORDERED: COLA100C5 PO (15:18)
[2024-07-16] MEDS ORDERED: SENO8.6T5 PO (15:18)
[2024-07-16] MEDS ORDERED: CYCL5TAB PO (15:18)
[2024-07-16] MEDS ORDERED: FAMO20TA PO (15:18)
[2024-07-16] MEDS ORDERED: HYDR25TA87 PO (15:18)
[2024-07-16] MEDS ORDERED: ONDA-83 PO (15:18)
[2024-07-16] MEDS ORDERED: ACET-683 PO (15:18)
[2024-07-16] MEDS ORDERED: LIDO5TD TD (15:18)
[2024-07-16 20:00] VITALS: BP 172/60; TEMP 97.5; O2SAT 96
[2024-07-17 04:00] VITALS: BP 148/78; TEMP 97.4; O2SAT 94
[2024-07-17 12:00] VITALS: BP 142/74; TEMP 97.5; O2SAT 95
[2024-07-17 12:58] VITALS: BP 148/78
== END 2024-07-17 15:20 | disposition home or self-care (01) | DRG 561 ==
LOC: M PM&R 16:00
PROVIDERS: ADMIT Physical Medicine & Rehabilitation; ATTEND Physical Medicine & Rehabilitation
DX: S82.101D Unspecified fracture of upper end of right tibia, subsequent encounter for closed fracture with routine healing (principal); I10 Essential (primary) hypertension; Z86.73 Personal history of transient ischemic attack (TIA), and cerebral infarction without residual deficits; Z85.3 Personal history of malignant neoplasm of breast; J45.30 Mild persistent asthma, uncomplicated; Z91.018 Allergy to other foods; Z88.8 Allergy status to other drugs, medicaments and biological substances; Z88.7 Allergy status to serum and vaccine; Z79.899 Other long term (current) drug therapy; Z79.82 Long term (current) use of aspirin; R26.89 Other abnormalities of gait and mobility

== ENCOUNTER → 2024-07-22 | Outpatient (CLI) | payer MEDICARE ==
[~2024-07-22] MED LIST changes: +ACET-683 PO; +COLA100C5 PO; +CYCL5TAB PO; +FAMO20TA PO; +HYDR25TA87 PO; +LIDO5TD TD; +ONDA-83 PO; +SENO8.6T5 PO; +TRAM50TA2 PO
== END ==
LOC: M SOG 09:23
PROVIDERS: ATTEND Physician Assistant
DX: M25.561 Pain in right knee (principal)

== ENCOUNTER → 2024-08-22 | Outpatient (CLI) | payer MEDICARE ==
[~2024-08-22] MED LIST changes: -CYCL5TAB PO; +CYCL5TAB4 PO
== END ==
LOC: M SOG 08:05
PROVIDERS: ATTEND Physician Assistant
DX: M25.561 Pain in right knee (principal); S82.101D Unspecified fracture of upper end of right tibia, subsequent encounter for closed fracture with routine healing

== ENCOUNTER → 2024-09-22 | Outpatient (CLI) | payer MEDICARE ==
[~2024-09-22] MED LIST changes: -ADV250INH INH; +ADVA1AER9 INH
== END ==
LOC: M SOG 07:55
PROVIDERS: ATTEND Physician Assistant
DX: M25.561 Pain in right knee (principal); S82.201D Unspecified fracture of shaft of right tibia, subsequent encounter for closed fracture with routine healing

== ENCOUNTER → 2024-11-03 | Outpatient (CLI) | payer MEDICARE | LOC: M SOG 07:51 | PROVIDERS: ATTEND Physician Assistant | DX: Z53.9 Procedure and treatment not carried out, unspecified reason (principal) ==

== ENCOUNTER → 2024-11-28 | Outpatient (CLI) | payer MEDICARE | LOC: M SOG 07:54 | PROVIDERS: ATTEND Physician Assistant | DX: S82.121D Displaced fracture of lateral condyle of right tibia, subsequent encounter for closed fracture with routine healing (principal) ==

== ENCOUNTER → 2025-07-29 | Outpatient (CLI) | payer MEDICARE ==
[~2025-07-29] MED LIST changes: +SENN-225 PO; -SENO8.6T5 PO
[2025-07-29 15:06] LABS: CALCIUM LEVEL 9.1 MG/DL (8.3-10.6); CARBON DIOXIDE LEVEL 30 MMOL/L (20-31); CHLORIDE LEVEL 104 MMOL/L (98-107); CREATININE FOR GFR 0.55 MG/DL (0.55-1.30); GLOMERULAR FILTRATION RATE > 90.0 (>39); POTASSIUM SERUM 4.4 MMOL/L (3.5-5.1); SODIUM LEVEL 143 MMOL/L (136-145)
== END ==
LOC: M WUC 11:24
PROVIDERS: ATTEND Nurse Practitioner Family
DX: I10 Essential (primary) hypertension (principal); R06.02 Shortness of breath